=== PATIENT | male | born 1960 | race Caucasian/White ===

== ENCOUNTER → 2025-01-04 | Day surgery (SDC) | payer BC ==
[2024-12-29 15:48] LABS: BASOPHILS % 0.4 % (0.0-1.0); EOSINOPHILS % 0.7 % (0.0-6.0); LYMPHOCYTES % 13.6 % (18.0-39.1); MONOCYTES % 9.5 % (4.4-11.3); NEUTROPHILS % 75.4 % (38.7-80.0); RED CELL DISTRIBUTION WIDTH 20.2 % (11.7-14.4)
[~2025-01-04] MED LIST: AMLODIPINE BESY10 MG PO; ASPIRIN325 MG PO; CRESTOR20 MG PO; DIOVAN HCT 1601 EACH PO; ESMOLOL HCL 100MG/10ML 10 MG/ML VIAL ONE; FAMOTIDINE 20 MG/2 ML VIAL IV ONE; FEOSOL325 MG PO; FISH OIL 1,0001 EAC7; GLUCAGON FOR INJ 1 MG VIAL ONE; GLYCOPYRROLATE INJ 0.2 MG/ML VIAL ONE; HUMALOG TE100 UNIT/1; HYOSCYAMINE SULFATE 0.5 MG/ML INJ ONE; ISOSORBIDE MONO30 MG PO; K2 PLUS D3 TAB1 EACH; LANTUS 3ML100 UNITS/ SQ; LIDOCAINE HCL 2% LOCAL INJ 5 ML SDV VIAL INJ ONE; LOSARTAN POTAS100 MG PO; METFORMIN HCL500 MG PO; METOPROLOL SUCC25 MG PO; OZEMPIC2 MG/0.75; PLAVIX75 MG PO; PROPOFOL IV EMULSION 50 ML IV ONE; ROSUVASTATIN CA20 MG PO; SYNJARDY 12.5-1 EACH PO; TESTOSTERONE SHOT IM; ZINC
[2025-01-04 12:08] VITALS: TEMP 97.2
[2025-01-04] MEDS: LACTATED RINGER'S 1,000 ML ONE (12:29)
[2025-01-04 12:35] VITALS: BP 152/96; PULSE 80; RESP 16; O2SAT 97
== END | disposition home or self-care (01) ==
LOC: OR 08:48
PROVIDERS: ATTEND Internal Medicine Gastroenterology
DX: R19.5 Other fecal abnormalities (principal); K64.8 Other hemorrhoids; K63.89 Other specified diseases of intestine; E11.9 Type 2 diabetes mellitus without complications; I25.810 Atherosclerosis of coronary artery bypass graft(s) without angina pectoris; I25.2 Old myocardial infarction; I10 Essential (primary) hypertension; E78.5 Hyperlipidemia, unspecified; F17.220 Nicotine dependence, chewing tobacco, uncomplicated; Z01.810 Encounter for preprocedural cardiovascular examination; Z01.812 Encounter for preprocedural laboratory examination; Z79.82 Long term (current) use of aspirin; Z79.84 Long term (current) use of oral hypoglycemic drugs; Z79.85 Long-term (current) use of injectable non-insulin antidiabetic drugs; Z79.4 Long term (current) use of insulin; Z79.899 Other long term (current) drug therapy; Z95.1 Presence of aortocoronary bypass graft
CPT/HCPCS: 36415 ×2; 45380; 82948; 85025; 93005; J1308; J1610; J1980; J2003; J2704; J7121; 45378